=== PATIENT | male | born 1960 | race Caucasian/White ===

== ENCOUNTER 2025-10-20 09:25 | Outpatient (AMB) | payer MEDICARE, OTHER, SELFPAY ==
--- OUTSIDE RECORDS SUMMARY | 2024-11-04 04:00 | XMS_ITS ---
Author Organization [facility], [place] Address [address] [place] [address] Care Team Providers Care Rotary Cutter Name Role Phone Migration, Provider Unavailable Unavailable REASON FOR VISIT CPX Encounters Encounter Location Date Provider Diagnosis [facility] [place] [address] [place] [address] 11/04/2024 Provider Migration Plan Of Treatment Next Appt Details Provider Name:Alka Allan, 11/05/2025 09:00:00 AM, [address], [address], [place], [address], [phone] Progress Notes * ANDRES SAWYERDOB:1960 (64 yo M)Acc No.[id number]:11/04/2024 Progress Notes Patient: ANDRES MAYORGA Provider: Eleonora Pineda :1960 A ge:63 Y S ex:Male Date:11/04/2024 Address:[address] [place], [place] [id number] Subjective: * Chief Complaints: * C PX * Ocular Surgical History: Objective: Vision Examination: * Electronic signature of Prov ider Migration on 10/20/2025 at 10:50 AM EST Sign off status: Pending * Provider: Eleonora Pineda Date: 01/05/[address]/Martine/eTransmitting on: 12/20/2024 10:50 AM EST
--- OUTSIDE RECORDS SUMMARY | 2024-12-05 04:15 | XMS_ITS ---
Author Organization [facility], [place] Address [address] [place] [address] Care Team Providers Care It Portfolio Manager Name Role Phone Santi Edmonds Unavailable [phone] REASON FOR VISIT Follow-up Appt Encounters Encounter Location Date Provider Diagnosis [facility], [address] [place] [address] 12/05/2024 Santi Edmonds Plan Of Treatment Next Appt Details Provider Name:Alka Allan, 11/05/2025 09:00:00 AM, [address] [place] [address], [place] [address], [place], [address], [phone] Progress Notes * ANDRES SAWYERDOB:1960 (64 yo M)Acc No.[id number]:12/05/2024 Progress Notes Patient: ANDRES MAYORGA Provider: Shay DAVIS :1960 A ge:64 Y S ex:Male Date:12/05/2024 Address:[address] [place], [place] [id number] Subjective: * Chief Complaints: * F ollow-up Appt * Ocular Surgical History: Objective: Vision Examination: * Electronic signature of Andrew Edmonds PA-C on 10/20/2025 at 10:50 AM EST Sign off status: Pending * Provider: Shay DAVIS Date: 0 12/05/[address]/Martine/eTantolinitting on: 12/20/2024 10:50 AM EST
--- OUTSIDE RECORDS SUMMARY | 2025-04-17 08:30 | XMS_ITS ---
Author Organization [facility] [place] Address [address] [place] [address] Care Team Providers Care Tempering Oven Operator Name Role Phone Santi Edmonds Unavailable [phone] REASON FOR VISIT Follow-up Appt Encounters Encounter Location Date Provider Diagnosis [facility], [address] [place] [address] 04/17/2025 Santi Edmonds Plan Of Treatment Next Appt Details Provider Name:Alka Allan, 11/05/2025 09:00:00 AM, [address] [place] [address], [place] [address], [place], [address], [phone] Progress Notes * ANDRES SAWYERDOB:1960 (64 yo M)Acc No.[id number]:04/17/2025 Progress Notes Patient: ANDRES MAYORGA Provider: Shay DAVIS :1960 A ge:64 Y S ex:Male Date:04/17/2025 Address:[address] [place], [place] [phone] Subjective: * Chief Complaints: * F ollow-up Appt * Ocular Surgical History: Objective: Vision Examination: * Electronic signature of Andrew Edmonds PA-C on 10/20/2025 at 10:50 AM EST Sign off status: Pending * Provider: Shay DAVIS Date: 0 04/17/[address]/Martine/eTantolinitting on: 1 12/20/2024 10:50 AM EST
--- NOTE | 2025-10-20 09:41 | MHC.PC.OV ---
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 care Intake Note: New patient visit Sight Effects Specialist Required: No Allergies No Known Allergies Allergy (Verified 10/20/25 09:41) Tobacco use date assessed: 10/20/25 Fall risk assessment: No Falls in past year Last assessed Fall Risk: 10/20/25 Dental Screening Dental Screen Date: 10/20/25 Did you have a dental visit in the last 12 months?: Yes Did you have a dental problem in the last 6 months where you did not have access to dental care?: No Was dental information given to patient?: Patient has dentist HPI HPI Comments History of Present Illness Details 64 year old male with a past medical history of hypertension, hyperlipidemia presenting to [facility]. Transferred from Dr Woodward from [facility] CV: On losartan-hctz 50-12.5mg daily, atorvastatin 20mg daily. Colonoscopy 06/2025-due-5 years. Prior 08/2020 Shingles 2020 RSV 2023 Flu shot 07/2025 ROS CONSTITUTIONAL: Denies weight loss, fever and chills. HEENT: Denies changes in vision and hearing. RESPIRATORY: Denies SOB and cough. CV: Denies palpitations and CP GI: Denies abdominal pain, nausea, vomiting and diarrhea. : Denies dysuria and urinary frequency. MSK: Denies new myalgia and joint pain. SKIN: Denies rash and pruritus. NEUROLOGICAL: Denies headache PSYCHIATRIC: Denies recent changes in mood. PHYSICAL EXAM: GENERAL: Alert and oriented x 3. NAD EYES: EOMI. Anicteric. HENT: Moist mucous membranes. No scleral icterus. No cervical lymphadenopathy. LUNGS: Clear to auscultation bilaterally. CARDIOVASCULAR: Regular rate and rhythm. No murmur. No JVD. ABDOMEN: Soft, non-tender +bs EXTREMITIES: No edema. Non-tender. SKIN: No rashes or lesions. Warm. NEUROLOGIC: No focal neurological deficits. CN II-XII grossly intact PSYCHIATRIC: Cooperative. Appropriate mood and affect [facility] Surgical History H/O colonoscopy H/O shoulder surgery H/O hernia repair Family History Other Alcoholism Substance abuse Social History Housing: House Alcohol intake: current Patient Tobacco Use Status: Never used Tobacco e-Cigarette/Vaping Use: Never Used Second Hand Smoke Exposure: No service: No Current occupational status: retired Cognitive needs: No Hearing needs: No Vision needs: No Questionnaire PHQ-9 Over the last 2 weeks, how often have you been bothered by any of the following problems? 1. Little interest or pleasure in doing things: not at all 2. Feeling down, depressed, or hopeless: not at all 3. Trouble falling or staying asleep, or sleeping too much: not at all 4. Feeling tired or having little energy: not at all 5. Poor appetite or overeating: not at all 6. Feeling bad about yourself - or that you are a failure or have let yourself or your family down: not at all 7. Trouble concentrating on things, such as reading the newspaper or watching television: not at all 8. Moving or speaking so slowly that other people could have noticed. Or the opposite - being so fidgety or restless that you have been moving around a lot more than usual: not at all 9. Thoughts that you would be better off or of hurting yourself in some way: not at all Total score: 0 Depression Screening Interpretation: Negative Depression Screening Done: Yes 65732 - PHQ-9 Billing: Yes Source: Developed by Drs. David Lemon, Marlyn Medina, Kal Santana and colleagues, with an educational alejandra from [employer] Thrive Questionnaire Date Thrive assessed: 10/14/25 I am a: Patient What is your living situation today?: I have a steady place to live Within the past 12 months, did the food you bought not last and you didn't have the money to get more?: Never true Within the past 12 months, did you worry whether your food would run out before you got money to buy more?: Never true Do you have trouble paying for medicines?: No Do you have trouble getting transportation to medical appointments?: No Do you have trouble paying your heating and electricity bill?: No Do you have trouble taking care of your child, family member or friend?: No Do you have trouble with day-to-day activities such as bathing, preparing meals, shopping, managing finances, etc.?: No Are you currently unemployed and looking for a job?: No Are you interested in more education?: No Please select the resources that you would like help with: None Currently or been in a relationship where the following occur: No concerns reported THRIVE Score: 0 AUDIT C Alcohol Use Questionnaire (AUDIT-C) 1. How often do you have a drink containing alcohol?: 2-4 times a month 2. How many drinks containing alcohol do you have on a typical day when you are drinking?: 1 or 2 3. How often do you have six or more drinks on one occasion?: Never Total Score: 2 SIMIN-7 AMB Questionnaire SIMIN-7 Date SIMIN - 7 assessed: 10/20/25 Feeling nervous, anxious, or on edge: 0 = Not at all Not being able to stop or control worryin = Not at all Worrying too much about different things: 0 = Not at all Trouble relaxin = Not at all Being so restless that it is hard to sit still: 0 = Not at all Becoming easily annoyed or irritable: 0 = Not at all Feeling afraid as if something awful might happen: 0 = Not at all Total SIMIN-7 score (0-4 normal; 5-9 mild; 10-14 moderate; 15-21 severe): 0 Source: Developed by Drs. David Lemon, Marlyn Medina, Kal Santana and colleagues, with an educational alejandra from [employer] SIMIN-7 Assessment Billing SIMIN-7 Assessment Tool: SIMIN-7 Assessment 80313 Physical exam (Primary Care) Vital Signs: Last Vital Signs Temp 98.1 F 10/20/25 09:49 Pulse 72 10/20/25 09:49 Resp 14 10/20/25 09:49 BP 102/72 10/20/25 09:49 Pulse Ox 98 10/20/25 09:49 Oxygen Delivery Method Room Air 10/20/25 09:49 BMI result Body Mass Index 30.4 Tobacco/Smoking Status: Tobacco use Status Tobacco use date assessed 10/20/25 10/20/25 09:54 Patient Tobacco Use Status Never used Tobacco 10/20/25 10:02 e-Cigarette/Vaping Use Never Used 10/20/25 10:02 PHQ-9: PHQ-9 Score PHQ-9: Total score 0 10/20/25 10:00 Depression Screening Interpretation: Negative Thrive Assessment: Date of Thrive Assessment Date Thrive assessed 10/14/25 10/20/25 09:43 Currently or been in a relationship where the following occur: No concerns reported Coding Level of Care Code New Pt Level 4 (12326) Diagnoses Encounter to establish care Z76.89 Primary hypertension I10 Hypertension type: primary hypertension Hyperlipidemia, unspecified hyperlipidemia type E78.5 Hyperlipidemia type: unspecified Additional Codes SIMIN-7 Assessment Billing - SIMIN-7 Assessment Tool: SIMIN-7 Assessment 28541 ([id number]) PHQ-9 - 74064 - PHQ-9 Billing: Yes ([id number]) Assessment & Plan Assessment & Plan (1) Encounter to establish care: Code(s): Z76.89 - Persons encountering health services in other specified circumstances Category: Medical (2) Hypertension: Code(s): I10 - Essential (primary) hypertension Category: Medical Qualifiers: Hypertension type: primary hypertension Qualified Code(s): I10 - Essential (primary) hypertension (3) Hyperlipidemia: Code(s): E78.5 - Hyperlipidemia, unspecified Category: Medical Qualifiers: Hyperlipidemia type: unspecified Qualified Code(s): E78.5 - Hyperlipidemia, unspecified Plan 64 year old to establish care Past medical, surgical, social reviewed HTN is well controlled on current medications HDL-check labs Orders: Orders Complete Blood Count Auto Diff Today E78.5 - Hyperlipidemia, unspecified, I10 - Essential (primary) hypertension, R35.89 - Other polyuria, Z12.5 - Encounter for screening for malignant neoplasm of prostate, Z13.0 - Encounter for screening for diseases of the blood and blood-forming organs and certain disorders involving the immune mechanism MMR IgG Measles Mumps Rubella Today E78.5 - Hyperlipidemia, unspecified, I10 - Essential (primary) hypertension, R35.89 - Other polyuria, Z12.5 - Encounter for screening for malignant neoplasm of prostate, Z13.0 - Encounter for screening for diseases of the blood and blood-forming organs and certain disorders involving the immune mechanism Varicella IgG Antibody Today E78.5 - Hyperlipidemia, unspecified, I10 - Essential (primary) hypertension, R35.89 - Other polyuria, Z12.5 - Encounter for screening for malignant neoplasm of prostate, Z13.0 - Encounter for screening for diseases of the blood and blood-forming organs and certain disorders involving the immune mechanism Comprehensive Met. Panel Today E78.5 - Hyperlipidemia, unspecified, I10 - Essential (primary) hypertension, R35.89 - Other polyuria, Z12.5 - Encounter for screening for malignant neoplasm of prostate, Z13.0 - Encounter for screening for diseases of the blood and blood-forming organs and certain disorders involving the immune mechanism Lipid Panel Today E78.5 - Hyperlipidemia, unspecified, I10 - Essential (primary) hypertension, R35.89 - Other polyuria, Z12.5 - Encounter for screening for malignant neoplasm of prostate, Z13.0 - Encounter for screening for diseases of the blood and blood-forming organs and certain disorders involving the immune mechanism Prostate Specific Antigen Today E78.5 - Hyperlipidemia, unspecified, I10 - Essential (primary) hypertension, R35.89 - Other polyuria, Z12.5 - Encounter for screening for malignant neoplasm of prostate, Z13.0 - Encounter for screening for diseases of the blood and blood-forming organs and certain disorders involving the immune mechanism Hemoglobin A1c Today Z13.0 - Encounter for screening for diseases of the blood and blood-forming organs and certain disorders involving the immune mechanism, Z13.228 - Encounter for screening for other metabolic disorders, Z13.29 - Encounter for screening for other suspected endocrine disorder Medications: New atorvastatin 20 mg PO DAILY 90 tabs 3RF losartan-hydrochlorothiazide 50-12.5 mg 1 tab PO DAILY 90 tabs 3RF
[2025-10-20 09:49] VITALS: BP 102/72; PULSE 72; RESP 14; TEMP 36.7; O2SAT 98; BMI 30.4
--- OUTSIDE RECORDS SUMMARY | 2025-10-20 10:50 | XMS_ITS | Patient Health Record ---
Author Organization [facility], [place] Address [address] [place] [address] Care Team Providers Care Metabolic Specialist Name Role Phone Santi Edmonds Unavailable [phone] Migration, Provider Unavailable Unavailable Reason For Referral No Information Encounters Encounter Location Date Provider Diagnosis [facility] [place] [address] [address] [facility] [address] [place] [phone] 11/04/2024 Provider Migration [facility], [place] [address] [place] [address] 12/05/2024 Santi Edmonds [facility], [place] [address] [place] [phone] 04/17/2025 Santi Edmonds Plan Of Treatment Next Appt Details Provider Name:Alka Allan, 11/05/2025 09:00:00 AM, [address], [place], [address], [phone] Insurance Providers Payer Name Payer Address Payer Phone Subscriber Number Group Number Insured Name Patient Relationship to Insured Coverage Start Date Coverage End Date A [employer] [address] [facility] [place] [phone] [id number] ANDRES SAWYER Self - patient is the insured [facility] [address] [place] [address] [id number] ANDRES SAWYER Self - patient is the insured
--- OUTSIDE RECORDS SUMMARY | 2025-10-20 10:50 | XMS_ITS | Clinical Summary ---
Author Organization [address] [facility] Address [address] [place] [address] Phone Care Team Providers Care Intelligence Chief Name Role Phone Vitaliy Mariano MD Primary Care Provider [phone] Allergies No known active allergies Medications ascorbic acid (VITAMIN C) 500 mg tablet Take 1 tablet (500 mg total) by mouth 1 (one) time each day. Active MULTIVITAMIN ORAL Take 1 tablet by mouth 1 (one) time each day. Active polyethylene glycol (Golytely) 236-22.74-6.74 -5.86 gram solution Take 4L by mouth once for one dose. May substitue any PEG. Starting at 2PM the day before your procedure drink 1 8oz glasses at your own pace until you complete half of the gallon. Finish 2nd half of the gallon at 8PM. 4000 mL 5 Active bisacodyL (DULCOLAX) 5 mg EC tablet Take 2 tablets by mouth right before beginning bowel prep. See instructions provided by the office 2 tablet 5 Active losartan-hydroC HLOROthiazide (HYZAAR) 50-12.5 mg per tablet Take 1 tablet by mouth 1 (one) time each day. 5 Active atorvastatin (LIPITOR) 20 mg tablet Take 1 tablet (20 mg total) by mouth 1 (one) time each day. 5 Active Surgical History Surgery Date Site/Laterality Comments COLONOSCOPY HERNIA REPAIR SHOULDER SURGERY Medical History Medical History Date Comments Hyperlipidemia Hypertension Social History Tobacco Use Types Packs/Day Years Used Date Smoking Tobacco: Never Smokeless Tobacco: Never Tobacco Cessation:Counseling Given: Not Answered Alcohol Use Standard Drinks/Week Comments Yes 0 (1 standard drink = 0.6 oz pur e alcohol) Interpersonal Safety Answer Date Record ed Physical Abuse Unrecognized value 07/16/2025 Verbal Abuse Unrecognized value 07/16/2025 Sex and Gender Information Value Date Recorded Sex Assigned at Male 07/16/2025 7:25 AM EDT Legal Sex Male 10:30 PM EST Gender Identity Male 07/16/2025 7:25 AM EDT Sexual Orientation Straight 07/16/2025 7: 25 AM EDT Obstetrics History Last Filed Vital Signs Vital Sign Reading Time Taken Comments Blood Pressure 119/85 07/16/2025 8:50 AM EDT Pulse 71 07/16/2025 8:50 AM EDT Temperature 36.4 C (97.6 F) 07/16/2025 8:40 AM EDT Respiratory Rate 15 07/16/2025 8:50 AM EDT Oxygen Saturation 95% 07/16/2025 8:50 AM EDT Inhaled Oxygen Concentration - - Weight 95.3 kg (210 lb) 07/09/2025 10:00 AM EDT Height 185.4 cm (6' 1 ) 07/09/2025 10:00 AM EDT Body Mass Index 27.71 07/09/2025 10:00 AM EDT Plan of Treatment Health Maintenance Due Date Last Done Comments DTaP,Tdap,and Td Vaccines (1 - Tdap) 1977 Pneumococcal Vaccine: 50+ Years (1 of 1 - PCV) 2008 Depression Screening 11/27/2024 Cholesterol Screening (Lipid Panel) 04/17/2025 Hepatitis C Screening 04/17/2025 Medicare Annual Wellness Visit 04/17/2025 Social Influencers of Health Screening 04/17/2025 COVID-19 Vaccine ( season) 2025 08/19/2024, 09/05/2023, 08/23/2022, Additional history exists Influenza Vaccine (#1) 2025 , 09/05/2023, 08/26/2022, Additional history exists Falls Risk Assessment 07/16/2026 07/16/2025 Colorectal Cancer Screening: Colonoscopy 07/16/2032 07/16/2025 Zoster Vaccines Completed 03/24/2022, 2021 RSV Immunization Adult Patients Completed 01/08/2024 HIB Vaccines Aged Out No longer eligi ble based on patient's age to complete this topic HPV Vaccines Aged Out No longer eligi ble based on patient's age to complete this topic Hepatitis A Vaccines Aged Out No long er eligible based on patient's age to complete this topic Hepatitis B Vaccines Aged Out No long er eligible based on patient's age to complete this topic IPV Vaccines Aged Out No longer eligi ble based on patient's age to complete this topic MMR Vaccines Aged Out No longer eligi ble based on patient's age to complete this topic Meningococcal ACWY Vaccine Aged Out N o longer eligible based on patient's age to complete this topic Meningococcal B Vaccine Aged Out No l onger eligible based on patient's age to complete this topic RSV Immunization Patients Under 20 months Aged Out No longer eligible based on patient's age to complete this topic Varicella Vaccines Aged Out No longer eligible based on patient's age to complete this topic Procedures Procedure Name Priority Date/Time Associated Diagnosis Comments COLONOSCOPY Routine 07/16/2025 8:39 AM EDT Hx of colonic polyps from Last 3 Months or Most Recently Relevant to Health Maintenance Results * COLONOSCOPY Anesthesia - MAC; [facility] ENDOSCOPY (07/16/2025 8:39 AM EDT) Anatomical Region Laterality Modality Endoscopy 07/16/2025 8:18 AM EDT Impressions 07/16/2025 8:43 AM EDT - Five 3 to 5 mm polyps in the sigmoid colon, in the transverse colon and in the cecum, removed with a cold snare. Resected and retrieved. - Diverticulosis in the sigmoid colon. - Internal hemorrhoids. - The examination was otherwise normal. Recommendation: - Discharge patient to home. - Await pathology results. - Repeat colonoscopy in 5 years for surveillance. Narrative 07/16/2025 8:43 AM EDT [facility] GI Patient Name: Michael Gonzalez Procedure Date: 07/16/2025 8:18 AM Date of : 1960 Age: 64 Gender: Male Note Status: Finalized Attending MD: Marya Wong MD, Procedure Date No Time: 07/16/2025 Procedure: Colonoscopy Indications: High risk colon cancer surveillance: Personal history of colonic polyps Providers: Marya Wong MD Referring MD: Marya Wong MD Medicines: Monitored Anesthesia Care Complications: No immediate complications. Estimated blood loss: Minimal. Estimated Blood Loss: Estimated blood loss was minimal. Procedure: Pre-Anesthesia Assessment: - Prior to the procedure, a History and Physical was performed, and patient medications and allergies were reviewed. The patient is competent. The risks and benefits of the procedure and the sedation options and risks were discussed with the patient. All questions were answered and informed consent was obtained. Patient identification and proposed procedure were verified by the physician, the nurse, the longitudinal float operator and the tissue recovery technician in the pre-procedure area in the endoscopy suite. Mental Status Examination: alert and oriented. Airway Examination: normal oropharyngeal airway and neck mobility. Respiratory Examination: clear to auscultation. CV Examination: normal. Prophylactic Antibiotics: The patient does not require prophylactic antibiotics. Prior Anticoagulants: The patient has taken no anticoagulant or antiplatelet agents. ASA Grade Assessment: II - A patient with mild systemic disease. After reviewing the risks and benefits, the patient was deemed in satisfactory condition to undergo the procedure. The anesthesia plan was to use monitored anesthesia care (MAC). Immediately prior to administration of medications, the patient was re-assessed for adequacy to receive sedatives. The heart rate, respiratory rate, oxygen saturations, blood pressure, adequacy of pulmonary ventilation, and response to care were monitored throughout the procedure. The physical status of the patient was re-assessed after the procedure. After I obtained informed consent, the scope was passed under direct vision. Throughout the procedure, the patient's blood pressure, pulse, and oxygen saturations were monitored continuously. The Colonoscope was introduced through the anus and advanced to the cecum, identified by appendiceal orifice and ileocecal valve. The colonoscopy was performed without difficulty. The patient tolerated the procedure well. The quality of the bowel preparation was good. Findings: The perianal and digital rectal examinations were normal. Five sessile polyps were found in the sigmoid colon, transverse colon and cecum. The polyps were 3 to 5 mm in size. These polyps were removed with a cold snare. Resection and retrieval were complete. Estimated blood loss was minimal. Multiple small-mouthed diverticula were found in the sigmoid colon. Internal hemorrhoids were found during retroflexion. The hemorrhoids were Grade I (internal hemorrhoids that do not prolapse). The exam was otherwise without abnormality. Procedure Code(s): --- Professional --- 69896, Colonoscopy, flexible; with removal of tumor(s), polyp(s), or other lesion(s) by snare technique Diagnosis Code(s): --- Professional --- D12.5, Benign neoplasm of sigmoid colon D12.3, Benign neoplasm of transverse colon (hepatic flexure or splenic flexure) D12.0, Benign neoplasm of cecum CPT copyright 2020 [employer]. All rights reserved. The codes documented in this report are preliminary and upon coder operator review may be revised to meet current compliance requirements. Marya Wong MD 07/16/2025 8:43:47 AM This report has been signed electronically.Marya Wong MD Number of Addenda: 0 Note Initiated On: 07/16/2025 8:18 AM Scope Withdrawal Time: 0 hours 14 minutes 0 seconds Scope In: 8:22:40 AM Scope Out: 8:40:15 AM Endoscopy Department at [facility] - [address] [place] [id number] Procedure Note Marya Wong MD - 07/16/2025 [facility] GI Patient Name: Michael Gonzalez Procedure Date: 07/16/2025 8:18 AM Date of : 1960 Age: 64 Gender: Male Note Status: Finalized Attending MD: Marya Wong MD, Procedure Date No Time: 07/16/2025 Procedure: Colonoscopy Indications: High risk colon cancer surveillance: Personalhistory of colonic polyps Providers: Marya Wong MD Referring MD: Marya Wong MD Medicines: Monitored Anesthesia Care Complications: No immediate complications. Estimated blood loss: Minimal. Estimated Blood Loss: Estimated blood loss was minimal. Procedure: Pre-Anesthesia Assessment: - Prior to the procedure, a History and Physicalwas performed, and patient medications and allergieswere reviewed. The patient is competent. The risks and benefits of the procedure and the sedation optionsand risks were discussed with the patient. Allquestions were answered and informed consent was obtained. Patient identification and proposed procedure were verified by the physician, the nurse, theanesthetist and the tissue recovery technician in the pre-procedure area in the endoscopy suite. Mental Status Examination: alertand oriented. Airway Examination: normal oropharyngeal airway and neck mobility. Respiratory Examination: clear to auscultation. CV Examination: normal. Prophylactic Antibiotics: The patient does notrequire prophylactic antibiotics. Prior Anticoagulants: The patient has taken no anticoagulant or antiplatelet agents. ASA Grade Assessment: II - A patient withmild systemic disease. After reviewing the risks and benefits, the patient was deemed in satisfactory condition to undergo the procedure. The anesthesia plan was to use monitored anesthesia care (MAC). Immediately prior to administration of medications, the patient was re-assessed for adequacy to receive sedatives. The heart rate, respiratory rate, oxygen saturations, blood pressure, adequacy of pulmonary ventilation, and response to care were monitored throughout the procedure. The physical status ofthe patient was re-assessed after the procedure. After I obtained informed consent, the scope was passed under direct vision. Throughout theprocedure, the patient's blood pressure, pulse, and oxygen saturations were monitored continuously. The Colonoscope was introduced through the anus and advanced to the cecum, identified by appendiceal orifice and ileocecal valve. The colonoscopy was performed without difficulty. The patient tolerated the procedure well. The quality of the bowel preparation was good. Findings: The perianal and digital rectal examinations were normal. Five sessile polyps were found in the sigmoidcolon, transverse colon and cecum. The polyps were 3 to 5mm in size. These polyps were removed with a coldsnare. Resection and retrieval were complete. Estimatedblood loss was minimal. Multiple small-mouthed diverticula were found inthe sigmoid colon. Internal hemorrhoids were found duringretroflexion. The hemorrhoids were Grade I (internal hemorrhoids that do not prolapse). The exam was otherwise without abnormality. Procedure Code(s): --- Professional --- 42743, Colonoscopy, flexible; with removal of tumor(s), polyp(s), or other lesion(s) by snare technique Diagnosis Code(s): --- Professional --- D12.5, Benign neoplasm of sigmoid colon D12.3, Benign neoplasm of transverse colon (hepatic flexure or splenic flexure) D12.0, Benign neoplasm of cecum CPT copyright 2020 [employer]. All rights reserved. The codes documented in this report are preliminary and upon coder operator reviewmay be revised to meet current compliance requirements. Marya Wong MD 07/16/2025 8:43:47 AM This report has been signed electronically.Marya Wong MD Number of Addenda: 0 Note Initiated On: 07/16/2025 8:18 AM Scope Withdrawal Time: 0 hours 14 minutes 0 seconds Scope In: 8:22:40 AM Scope Out: 8:40:15 AM Endoscopy Department at [facility] - [address] [place] [id number] IMPRESSION: - Five 3 to 5 mm polyps in the sigmoid colon, in the transverse colon and in the cecum, removed with acold snare. Resected and retrieved. - Diverticulosis in the sigmoid colon. - Internal hemorrhoids. - The examination was otherwise normal. Recommendation: - Discharge patient to home. - Await pathology results. - Repeat colonoscopy in 5 years for surveillance. Marya Wong MD GI~PROCEDURE ORDERABLES Fin al Result from Last 3 Months or Most Recently Relevant to Health Maintenance Insurance MEDICARE [facility] Care Teams Intelligence Chief Relationship Specialty Start Date End Date Vitaliy Mariano MD [address] [id number] PCP - General Internal Medicine 02/04/20
== END 2025-10-20 10:26 | disposition home or self-care (01) ==
LOC: HO.HMCFM 09:25
PROVIDERS: PCP Internal Medicine; Visit Provider Internal Medicine
DX: Z76.89 Persons encountering health services in other specified circumstances (principal); I10 Essential (primary) hypertension; E78.5 Hyperlipidemia, unspecified

== ENCOUNTER 2025-10-20 09:25 | Outpatient (REF) | payer MEDICARE, OTHER, SELFPAY ==
[2025-10-20 14:27] LABS: MANUAL DIFF FLAG NO
[2025-10-20 14:30] LABS: Hematocrit 43.8 % (42.0-52.0); Hemoglobin 14.2 g/dl (14.0-18.0); Imm Gran Abs Auto 0.03 X10*3/uL (0.00-0.03); Imm Gran Pct Auto 0.4 % (0.0-0.4); Lymphocytes Absolute Auto 1.9 X10*3/uL (1.2-4.9); Mean Corpuscular HGB Conc 32.4 g/dl (31.0-36.0); Mean Corpuscular Hemoglobin 28.8 pg (27.0-33.0); Mean Corpuscular Volume 88.8 fL (80.0-98.0); NRBC Abs Auto 0.000 X10*3/uL (0.0-0.012); NRBC Pct Auto 0.0 /100WBC (0.0-0.2); Platelet Count 258 X10*3/uL (160-400); Red Blood Count 4.93 X10*6/uL (4.60-5.80); White Blood Count 7.0 X10*3/uL (4.8-10.8)
[2025-10-20 15:33] LABS: Prostate Specific Antigen 1.25 ng/mL (<0.05-4.0)
[2025-10-20 15:37] LABS: Alanine Aminotransferase 20 U/L (0-40); Albumin Level 4.8 g/dL (3.5-5.0); Alkaline Phosphatase 70 U/L (39-117); Anion Gap 12 (12-20); Aspartate Amino Transferase 35 U/L (5-37); Blood Urea Nitrogen 17 mg/dL (9-16); Calcium 9.8 mg/dL (8.4-10.2); Carbon Dioxide 29 mmol/L (22-29); Chloride 102 mmol/L (96-108); Cholesterol 140 mg/dL (<200); Estimated Glomerular Filt Rate > 60; HDL Cholesterol 52 mg/dL (>40); Potassium 4.2 mmol/L (3.3-5.1); Sodium 139 mmol/L (135-145); Total Protein 7.4 g/dL (6.5-8.0); Triglycerides 160 mg/dL (<150)
[2025-10-21 11:08] LABS: Rubeola IgG (Measles) >300.00 AU/mL
== END 2025-10-20 09:26 | disposition home or self-care (01) ==
LOC: HO.WFDLDS 09:25
PROVIDERS: PCP Internal Medicine; Visit Provider Internal Medicine
DX: Z13.0 Encounter for screening for diseases of the blood and blood-forming organs and certain disorders involving the immune mechanism (principal); Z12.5 Encounter for screening for malignant neoplasm of prostate; Z13.29 Encounter for screening for other suspected endocrine disorder; Z13.228 Encounter for screening for other metabolic disorders; Z76.89 Persons encountering health services in other specified circumstances; E78.5 Hyperlipidemia, unspecified; I10 Essential (primary) hypertension; R35.89 Other polyuria; Z79.899 Other long term (current) drug therapy
CPT/HCPCS: 36415; 80053; 80061; 83036; 84153; 85025; 86735; 86762; 86765; 86787; 96127; 99202